=== PATIENT | male | born 1990 | race Hispanic/Latino ===

== ENCOUNTER → 2017-07-13 | Outpatient (CLI) | payer OTHER ==
--- NOTE | 2017-07-13 13:46 | Diagnostic Imaging Report ---
PROCEDURE: CT ABDOMEN AND PELVIS WITHOUT CONTRAST TECHNIQUE: The abdomen and pelvis were scanned utilizing a multidetector helical scanner from the diaphragm to the lesser trochanter without IV contrast. Coronal and sagittal multiplanar reformations were obtained. COMPARISON: None. INDICATIONS: RENAL STONE. Lower back pain, history of stones, hematuria. FINDINGS: ABSENCE OF INTRAVENOUS CONTRAST DECREASES SENSITIVITY FOR DETECTION OF FOCAL LESIONS AND VASCULAR PATHOLOGY. LOWER THORAX: Normal. HEPATOBILIARY: Severe diffuse hepatic steatosis. No focal hepatic lesions. No biliary ductal dilatation. No radiopaque gallstones and no gallbladder wall thickening. SPLEEN: No splenomegaly. PANCREAS: No focal masses or ductal dilatation. ADRENALS: No adrenal nodules. KIDNEYS/URETERS: There is a 4 mm stone at the left ureterovesical junction (series 3, image 150) with mild left hydronephrosis and hydroureter. There is a 4 mm nonobstructing stone in the lower pole of the left kidney (series 41, and 60). No right renal or ureteral stones. No solid mass lesions. PELVIC ORGANS/BLADDER: Unremarkable. PERITONEUM / RETROPERITONEUM: No free air or fluid. LYMPH NODES: No lymphadenopathy. VESSELS: Unremarkable. GI TRACT: No distention or wall thickening. The appendix is normal. BONES AND SOFT TISSUES: Unremarkable. IMPRESSION: 4 mm stone at the left ureterovesical junction with mild left hydronephrosis and hydroureter. There is a 4 mm nonobstructing stone in the lower pole of the left kidney. No right renal or ureteral stones. Dictated by: Femi Arzola M.D. on 07/13/2017 at 13:47 Electronically approved by: Femi Arzola M.D. on 07/13/2017 at 13:47
== END ==
LOC: CT 11:47
PROVIDERS: ATTEND Family Medicine
DX: N20.0 Calculus of kidney (principal)
CPT/HCPCS: 74176

== ENCOUNTER → 2017-08-14 | Outpatient (CLI) | payer OTHER ==
--- NOTE | 2017-08-14 11:15 | Diagnostic Imaging Report ---
PROCEDURE:ABDOMEN-1VIEW (KUB) TECHNIQUE:Supine AP views abdomen totaling 2 radiographs INDICATION:Kidney stones. COMPARISON:[facility], CT, CT ABDOMEN/PELVIS WO, 07/13/2017, 12:07. FINDINGS: No calcifications over the kidneys. A 0.8 cm long calcification over the mid kidney on the view of the lower abdomen is not reproducible on the upper abdomen, suggesting artifact. The linear 0.4 cm calcification at the left ureterovesicular junction on CT from July 13 2017 is not conspicuous. There several subcentimeter pelvic phleboliths. Normal bowel gas pattern. No organomegaly or ascites. Normal skeleton. CONCLUSION: No conspicuous nephrolithiasis. The 0.4 cm stone at the left ureterovesicular junction on CT from July 13, 2017 is not definitively conspicuous. Dictated by: Mo May M.D. on 08/14/2017 at 11:17 Electronically approved by: Mo May M.D. on 08/14/2017 at 11:17
== END ==
LOC: RAD 10:35
PROVIDERS: ATTEND Urology
DX: N20.1 Calculus of ureter (principal)
CPT/HCPCS: 74018